=== PATIENT | female | born 1975 | race Caucasian/White ===

== ENCOUNTER 2019-05-07 01:56 | Emergency (ER) | payer MEDICAID ==
[~2019-05-07] VITALS: Ht 160 cm; Wt 74.8 kg
[2019-05-07 02:25] VITALS: BP_SYST 152
[2019-05-07 03:21] VITALS: BP_SYST 142
== END 2019-05-07 03:21 | disposition home or self-care (01) ==
LOC: SED 01:56
DX: T19.2XXA Foreign body in vulva and vagina, initial encounter (principal); X58.XXXA Exposure to other specified factors, initial encounter; Y93.89 Activity, other specified; Y92.89 Other specified places as the place of occurrence of the external cause; Y99.8 Other external cause status
CPT/HCPCS: 99284